=== PATIENT | female | born 1955 | race Asian ===

== ENCOUNTER 2017-03-13 07:36 | Emergency (ER) | payer OTHER ==
[~2017-03-13] VITALS: Ht 154.9 cm; Wt 69.0 kg
[2017-03-13 07:41] VITALS: Ht 154.9 cm; Wt 69.0 kg
[2017-03-13] MEDS ORDERED: KETOROLAC 60 MG INJ IM STA (08:10)
[2017-03-13] MEDS ORDERED: DIAZEPAM 2 MG TAB PO ONE (08:30)
--- NOTE | 2017-03-13 08:42 | ERD ---
ER Documentation Chief Complaint Date/Time DATE: 03/13/17 TIME: 08:38 Chief Complaint lower back pain x 3 days HPI This is a 61-year-old female presents to the ER complaining of lower back pain that started on Monday after she lifted a heavy patient. 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 Pain is located on her lower back and is severe. Patient took ibuprofen PM for the pain and stated that this helped her sleep, however pain was worse this morning. Pain is worse whenever she tries to move or walk, however she is able to walk. Pain is nonradiating she denies any leg numbness tingling or weakness. Patient denies any urinary bowel incontinence. She denies any fever or chills. ROS 12 point review of systems was done, all negative except per HPI. Medications Home Meds Active Scripts Orphenadrine Citrate (Norflex) 100 Mg Tablet.sa, 100 MG PO BID for 5 Days, TAB.SA Prov:SINAI HALL 03/13/17 Ibuprofen* (Motrin*) 600 Mg Tab, 600 MG PO Q6, #30 TAB Prov:RAFAELSINAI C 03/13/17 Allergies Allergies: Coded Allergies: Penicillins (Verified Allergy, Unknown, 03/13/17) PMhx/Soc History of Surgery: Yes (HYSTERECTOMY ) Anesthesia Reaction: No Hx Neurological Disorder: No Hx Respiratory Disorders: No Hx Cardiac Disorders: Yes (HTN , HIGH CHOLESTEROL ) Hx Psychiatric Problems: No Hx Miscellaneous Medical Probl: No Hx Alcohol Use: No Hx Substance Use: No Hx Tobacco Use: Yes Smoking Status: Current some day smoker Physical Exam Vitals Physical Exam GENERAL: The patient is well developed and appropriate for usual state of health , in no apparent distress. CHEST: Clear to auscultation bilaterally. There are no rales, wheezes or rhonchi. BACK: Patient is able to ambulate to the treatment area with assistance. She is in a wheelchair. She is sitting down with some moderate distress secondary to the pain. There is no surface trauma. No abrasions scars, ecchymosis. There is no vertebral point tenderness she does have some muscle tenderness to palpation with some spasming. No step-offs or deformity of the bony thoracic or lumbar spine to firm palpation at midline. Patient is able to stand she has painful but normal flexion extension, lateral bending and rotation. Dorsi and plantar flexion with adequate strength. Negative straight leg tests. Sensation intact to L4 L5-S1. EXTREMITIES: Equal pulses bilaterally. There is no peripheral clubbing, cyanosis or edema. No focal swelling or erythema. Full range of motion. Grossly neurovascularly intact. NEURO: Alert and oriented. SKIN: There is no apparent rash or petechia. The skin is warm and dry. Results 24 hrs Current Medications Medications (Trade) Dose Ordered Sig/Araceli Route PRN Reason Start Time Stop Time Status Last Admin Dose Admin Ketorolac Tromethamine (Toradol) 60 mg ONCE STAT IM 03/13/17 08:10 03/13/17 08:12 DC 03/13/17 08:32 Diazepam (Valium) 2 mg ONCE ONCE PO 03/13/17 08:30 03/13/17 08:31 DC 03/13/17 09:05 [place] [id number] Radiology Main Line: [phone] DIAGNOSTIC IMAGING REPORT Patient: SILVANO AGARWAL : 1955 Age: 61 Sex: F MR #: [id number] DOS: 03/13/17 0000 Ordering MD: SINAI HALL PA-C Location: [facility] Room/Bed: PROCEDURE: XR Lumbar Spine. CLINICAL INDICATION: Low back pain. TECHNIQUE: Four views of the lumbar spine are available for review including AP, lateral and both obliques. COMPARISON: None available FINDINGS: There is preservation of normal lumbar lordosis. There is no evidence for fracture. No evidence for bone destructive change. There is moderate degenerative change of the facets L4-5 and L5-S1. IMPRESSION: 1. Moderate facet degenerative change at L4-5 and L5-S1. 2. No evidence for fracture. RPTAT: XX .Ricardo Alejandro MD, MD Date Time Electronically viewed and signed by .Ricardo Alejandro MD, on 03/13/2017 09: 24 .T/ CC: SINAI HALL Procedures/MDM This is a 61-year-old female presents to the differential Diagnosis includes but is not limited to back strain, vertebral fracture, epidural abscess, cauda equina, herniated disc, AAA rupture, kidney stones, UTI, pyelonephritis. This is a 61-year-old female presents to the ER with lower back pain after she lifted a heavy patient. This is likely muscular in nature. Suspicion for cauda equina or epidural abscess is. Patient is afebrile and well-appearing she does have normal range of motion of her lower extremities and is neurovascularly intact. Patient will be sent home with ibuprofen and with Norflex. She is to follow-up with her primary care doctor within 1-2 days return to ER sooner to worsen. My medical decision making shared with the patient she understands and agrees with plan. Departure Diagnosis: Primary Impression: Back pain Condition: Stable SINAI HALL Mar 13, 2017 08:42
--- NOTE | 2017-03-13 09:24 | RADRPT ---
PROCEDURE: XR Lumbar Spine. CLINICAL INDICATION: Low back pain. TECHNIQUE: Four views of the lumbar spine are available for review including AP, lateral and both obliques. COMPARISON: None available FINDINGS: There is preservation of normal lumbar lordosis. There is no evidence for fracture. No evidence fo r bone destructive change. There is moderate degenerative change of the facets L4-5 and L5-S1. IMPRESSION: 1. Moderate facet degenerative change at L4-5 and L5-S1. 2. No evidence for fracture. RPTAT: XX .Ricardo Alejandro MD, MD Date Time Electronically viewed and signed by .Ricardo Alejandro MD, on 03/13/2017 09:24 .T/
[2017-03-13] MEDS ORDERED: IBUP-1542 PO (09:44)
[2017-03-13] MEDS ORDERED: ORPH100T PO (09:45)
== END 2017-03-13 10:04 | disposition home or self-care (01) ==
LOC: FTE 07:36
DX: M54.5 Low back pain (principal); I10 Essential (primary) hypertension; F17.210 Nicotine dependence, cigarettes, uncomplicated
CPT/HCPCS: 72100; J1885; 96372